=== PATIENT | female | born 1975 | race Caucasian/White ===

== ENCOUNTER 2018-10-28 12:10 | Emergency (ER) | payer MEDICAID ==
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
[2018-10-28] MEDS ORDERED: KETOROLAC 15 MG/ML VIAL IVP ONE (12:50)
[2018-10-28] MEDS ORDERED: ONDANSETRON 4 MG/2 ML VIAL IVP ONE (12:50)
[2018-10-28] MEDS ORDERED: IOPAMIDOL 76% 100 ML INFUS BTL 100 ML ONE (12:54)
[2018-10-28] MEDS ORDERED: GABA-535 PO (13:12)
[2018-10-28] MEDS ORDERED: ARIP15TA9 PO (13:12)
[2018-10-28] MEDS ORDERED: TAMS0.4C25 PO (13:12)
[2018-10-28] MEDS ORDERED: OXYB5TAB86 PO (13:12)
[2018-10-28 13:16] LABS: PLATELET COUNT, AUTOMATED 206 K/uL (150-450)
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
[2018-10-28 14:23] VITALS: BP 109/89
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
[2018-10-28] MEDS ORDERED: ONDA4TAB97 PO (15:11)
[2018-10-28] MEDS ORDERED: KET10 PO (15:11)
== END 2018-10-28 15:30 | disposition home or self-care (01) ==
LOC: ER 12:58
DX: S40.012A Contusion of left shoulder, initial encounter (principal); S20.212A Contusion of left front wall of thorax, initial encounter; S70.02XA Contusion of left hip, initial encounter; S80.02XA Contusion of left knee, initial encounter; V29.9XXA Motorcycle rider (driver) (passenger) injured in unspecified traffic accident, initial encounter
CPT/HCPCS: 70450; 71260; 72170; 73030; 73564; 74177; 81001; 85025; 96374; 96375; 99284; J1885; J2405; Q9967; 82040; 82247; 82310; 82374; 82435; 82565; 82947; 84075; 84132; 84155; 84295; 84450; 84460; 84520